=== PATIENT | male | born 1980 ===

== ENCOUNTER 2018-12-13 10:53 | Outpatient (REF) | payer MEDICAID, SELFPAY ==
[2018-12-13 21:52] LABS: ALT 39 U/L (12-78); AST 30 U/L (15-37); Albumin 3.9 g/dL (3.4-5.0); Alkaline Phosphatase 108 U/L (46-116); Anion Gap 8.2 mmol/L (3-11); BUN 16 mg/dL (7-18); Bilirubin, Total 0.2 mg/dL (0.2-1.0); CO2 28.8 mmol/L (21.0-32.0); CREATININE 1.03 mg/dL (0.70-1.30); Calcium 9.3 mg/dL (8.5-10.1); Chloride 105 mmol/L (98-107); Glucose 109 mg/dL (70-100); Potassium 4.3 mmol/L (3.5-5.1); Sodium 142 mmol/L (136-145); TSH 3.85 uIU/mL (0.358-3.74); Total Protein 7.7 g/dL (6.4-8.2)
== END 2018-12-13 11:13 ==
LOC: NCHCN 10:53
PROVIDERS: Visit Provider Registered Nurse
DX: E03.9 Hypothyroidism, unspecified (principal); E66.9 Obesity, unspecified
CPT/HCPCS: 80053; 84443